=== PATIENT | male | born 1980 | race African-American/Black ===

== ENCOUNTER 2016-11-27 02:48 | Emergency (ER) | payer SELFPAY ==
[~2016-11-27] VITALS: Ht 180.3 cm; Wt 69.9 kg
[2016-11-27 03:00] VITALS: BP 112/73
[2016-11-27] MEDS ORDERED: DILANTIN100 MG ORAL ×3 (03:02→03:22)
--- NOTE | 2016-11-27 03:25 | Emergency Room Report ---
History of Present Illness General Chief Complaint: Medication Refill Source: Patient Present Illness HPI 36YOM walk-in with med refill request Just released from [facility] days ago Patient took Dilantin 300mg ///Saturday and 200mg //Sat Denies recent seizure Denies other med problems Feels well otherwise Allergies: Coded Allergies: PENICILLINS (Verified Allergy, Unknown, 11/27/16) Patient History Past Medical History: seizures Past Surgical History: none Pertinent Family History: none Social History: Denies: smoking, alcohol use, drug use Immunizations: UTD Reviewed Nursing Documentation: PMH: Agreed, PSxH: Agreed Nursing Documentation-PMH Hx Seizures: Yes Review of Systems All Other Systems: negative except mentioned in HPI Physical Exam Vital Signs Date Time Temp Pulse Resp B/P (MAP) Pulse Ox O2 Delivery O2 Flow Rate FiO2 11/27/16 02:56 97.3 57 18 112/73 98 Room Air Sp02 EP Interpretation: reviewed, normal General Appearance: normal inspection, well appearing, no apparent distress, alert, GCS 15, non-toxic Head: normocephalic, atraumatic Eyes: bilateral eye PERRL, bilateral eye EOMI ENT: normal ENT inspection, hearing grossly normal, normal voice Neck: normal inspection, full range of motion, supple, no bony tend Respiratory: normal inspection, lungs clear, normal breath sounds, no respiratory distress, no retraction, no wheezing Cardiovascular #1: regular rate, rhythm, no edema Gastrointestinal: normal inspection, normal bowel sounds, non tender, soft, no guarding, no hernia Genitourinary: no CVA tenderness Musculoskeletal: normal inspection, back normal, normal range of motion, Buffy' s Sign negative Neurologic: normal inspection, alert, oriented x3, responsive, physician gynecologist III-XII nml as tested, motor strength/tone normal, speech normal Psychiatric: normal inspection, judgement/insight normal, mood/affect normal Skin: normal inspection, normal color, no rash Medical Decision Making Diagnostic Impression: Primary Impression: Encounter for medication refill ER Course Dilatin refilled VSS. Afebrile No active seizures Asked to F/up with PMD for next refill DC home Last Vital Signs Date Time Temp Pulse Resp B/P (MAP) Pulse Ox O2 Delivery O2 Flow Rate FiO2 11/27/16 02:56 97.3 57 18 112/73 98 Room Air Status: improved Disposition: HOME, SELF-CARE Condition: Improved Scripts Phenytoin Sodium Extended* (DILANTIN*) 100 Mg Capsule 300 MG ORAL Mon, Sat, Sat, Sun, #30 CAP Prov: JEANINE JEFFRIES M.D. 11/27/16 Phenytoin Sodium Extended* (DILANTIN*) 100 Mg Capsule 200 MG ORAL Tu, Th, Sat, #30 CAP 0 Refills Prov: JEANINE JEFFRIES M.D. 11/27/16 Referrals: NOT CHOSEN [facility]/,REFERRING (PCP) Patient Instructions: Medicine Refill at the Emergency Department JEANINE JEFFRIES M.D. Nov 27, 2016 03:25
== END 2016-11-27 03:24 | disposition home or self-care (01) ==
LOC: EMR 03:15
DX: Z76.0 Encounter for issue of repeat prescription (principal); Z88.0 Allergy status to penicillin; G40.909 Epilepsy, unspecified, not intractable, without status epilepticus
CPT/HCPCS: 99282

== ENCOUNTER 2017-01-20 21:04 | Emergency (ER) | payer MEDICAID ==
[~2017-01-20] VITALS: Ht 180.3 cm; Wt 69.9 kg
[~2017-01-20 21:04] MED LIST: DILANTIN100 MG ORAL
[2017-01-20 21:15] VITALS: BP 103/51
[2017-01-20 21:28] VITALS: BP 118/64
[2017-01-20] MEDS ORDERED: DILANTIN100 MG ORAL (21:28)
--- NOTE | 2017-01-20 21:28 | Emergency Room Report ---
History of Present Illness General Chief Complaint: Medication Refill Source: Patient Present Illness HPI Is a 36-year-old male with a history of seizure. He takes Dilantin. He presents with chief complaint of needing refill his medication. He does have a Dr. He said he felt weird this he's been off of his meds for 3 days. No seizure activity. No nausea no vomiting. No tongue or trauma. Denies any other complaint. Allergies: Coded Allergies: PENICILLINS (Verified Allergy, Unknown, 01/20/17) Patient History Past Medical History: see triage record, old chart reviewed, seizures Past Surgical History: other Pertinent Family History: none Social History: Denies: smoking Immunizations: other Reviewed Nursing Documentation: PMH: Agreed, PSxH: Agreed Nursing Documentation-PMH Past Medical History: No History, Except For Hx Seizures: Yes Review of Systems Eye: Denies: eye pain, blurred vision ENT: Denies: ear pain, nose congestion, throat swelling Respiratory: Denies: cough, shortness of breath Cardiovascular: Denies: chest pain, palpitations Gastrointestinal: Denies: abdominal pain, diarrhea, nausea, vomiting Musculoskeletal: Denies: back pain, joint pain Skin: Denies: rash Neurological: Denies: headache, numbness Endocrine: Denies: increased thirst, increased urine Hematologic/Lymphatic: Denies: easy bruising All Other Systems: negative except mentioned in HPI Physical Exam Vital Signs Date Time Temp Pulse Resp B/P (MAP) Pulse Ox O2 Delivery O2 Flow Rate FiO2 01/20/17 21:12 97.5 54 16 103/51 98 Room Air vitals normal Sp02 EP Interpretation: reviewed, normal General Appearance: well appearing, no apparent distress, alert Head: normocephalic, atraumatic Eyes: bilateral eye PERRL, bilateral eye EOMI ENT: hearing grossly normal, normal pharynx Neck: full range of motion, supple, no meningismus Respiratory: chest non-tender, lungs clear, normal breath sounds Cardiovascular #1: regular rate, rhythm, no murmur Gastrointestinal: normal bowel sounds, non tender, no mass, no organomegaly, no bruit, non-distended Musculoskeletal: back normal, gait/station normal, normal range of motion Psychiatric: mood/affect normal Skin: warm/dry Medical Decision Making Diagnostic Impression: Primary Impression: Encounter for medication refill ER Course Patient was seizure in here for refill on his medication. He has no recent seizure activity. He's not driving so I see no need for DMV report. We'll discharge home. We'll go ahead and gave him a dose of his Dilantin here. Last Vital Signs Date Time Temp Pulse Resp B/P (MAP) Pulse Ox O2 Delivery O2 Flow Rate FiO2 01/20/17 21:12 97.5 54 16 103/51 98 Room Air Status: unchanged Disposition: HOME, SELF-CARE Condition: Stable Scripts Phenytoin Sodium Extended* (DILANTIN*) 100 Mg Capsule 300 MG ORAL BEDTIME, #270 CAP Prov: AUREA BELCHER M.D. 01/20/17 Patient Instructions: Medicine Refill at the Emergency Department Additional Instructions: Followup in the clinic or with your Dr. for refill your medication in the future. Return if symptom worsen. AUREA BELCHER M.D. Jan 20, 2017 21:28
[2017-01-20] MEDS ORDERED: Phenytoin 100mg cap ORAL ONE (21:30)
== END 2017-01-20 21:28 | disposition home or self-care (01) ==
LOC: EMR 21:20
DX: Z76.0 Encounter for issue of repeat prescription (principal); G40.909 Epilepsy, unspecified, not intractable, without status epilepticus; Z88.0 Allergy status to penicillin
CPT/HCPCS: 99282